=== PATIENT | female | born 1940 | race Caucasian/White ===

== ENCOUNTER 2021-04-25 14:21 | Emergency (ER) | payer MEDICARE, OTHER ==
[~2021-04-25] VITALS: Ht 152.4 cm; Wt 75.3 kg
--- NOTE | 2021-04-25 14:21 | NUR ---
PT BIBRA 60 FROM HOME C/O WEAKNESS AND DIZZINESS. 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 WILL CONTINUE TO MONITOR.
--- NOTE | 2021-04-25 14:40 | NUR ---
AT BEDSIDE FOR EVAL.
[2021-04-25] MEDS ORDERED: SITA100T PO (14:49)
[2021-04-25] MEDS ORDERED: LEVO75TA7 PO (14:49)
[2021-04-25] MEDS ORDERED: ASPI-1420 PO (14:49)
[2021-04-25] MEDS ORDERED: APIX5TAB PO (14:49)
[2021-04-25] MEDS ORDERED: AMLO-212 PO (14:49)
[2021-04-25] MEDS ORDERED: BISO10TA PO (14:49)
[2021-04-25] MEDS ORDERED: ATOR40TA PO (14:49)
[2021-04-25] MEDS ORDERED: ICOS1CAP PO (14:49)
[2021-04-25] MEDS ORDERED: DOCU250C21 PO (14:49)
[2021-04-25] MEDS ORDERED: HYDR-4076 PO (14:49)
[2021-04-25] MEDS ORDERED: DONE5TAB34 PO (14:49)
[2021-04-25] MEDS ORDERED: CHLO25TA2 PO (14:49)
[2021-04-25] MEDS ORDERED: GABA300C PO (14:49)
[2021-04-25] MEDS ORDERED: MECLIZINE HCL 25 MG TABLET ONE (14:52)
[2021-04-25] MEDS ORDERED: IV NS 0.9% 500 ML BAG IV ONE (15:00)
[2021-04-25] MEDS ORDERED: MECLIZINE HCL 12.5 MG TABLET PO ONE (15:00)
[2021-04-25 15:04] LABS: BASOPHILS % (AUTO) 0.8 % (0.0-2.0); EOSINOPHILS % (AUTO) 0.7 % (0.0-6.0); HEMATOCRIT 42 % (33-45); LYMPHOCYTES % (AUTO) 33.2 % (20.0-44.0); MEAN CORPUSCULAR HGB CONC 33 g/dl (31.0-36.0); MEAN CORPUSCULAR VOLUME 95 fL (82-100); MONOCYTES # (AUTO) 0.4 K/uL (0.1-1.30); MONOCYTES % (AUTO) 6.5 % (2.0-12.0); NEUTROPHILS # (AUTO) 3.6 K/uL (1.8-8.9); NEUTROPHILS % (AUTO) 58.8 % (43.0-81.0); PLATELET COUNT (AUTO) 171 K/uL (150-450); RED BLOOD CELL COUNT(AUTO) 4.39 MIL/uL (4.0-5.2); WHITE BLOOD COUNT (AUTO) 6.1 K/uL (4.3-11.0)
[2021-04-25 15:21] LABS: ALANINE AMINOTRANSFERASE 21 U/L (12-78); ALBUMIN 3.7 g/dL (3.4-5.0); ALKALINE PHOSPHATASE 86 U/L (46-116); ASPARTATE AMINOTRANSFERASE 17 U/L (15-37); BILIRUBIN,DIRECT 0.1 mg/dL (0.0-0.2); BILIRUBIN,TOTAL 0.7 mg/dL (0.2-1.0); CALCIUM, SERUM 8.7 mg/dL (8.5-10.1); CARBON DIOXIDE 28 mmol/L (21-32); CHLORIDE 105 mmol/L (98-107); CREATININE 1.2 mg/dL (0.6-1.3); GLUCOSE 151 mg/dL (74-106); POTASSIUM 4.7 mmol/L (3.5-5.1); SODIUM SERUM 140 mmol/L (136-145); TOTAL PROTEIN, SERUM 6.6 g/dL (6.4-8.2); UREA NITROGEN, BLOOD 17 mg/dL (7-18)
--- NOTE | 2021-04-25 15:22 | NUR ---
PT IS WHEELED TO CT SCAN VIA [facility].
[2021-04-25] MEDS ORDERED: MECL-159 PO (16:21)
--- NOTE | 2021-04-25 16:38 | NUR ---
IV removed. Catheter intact and site benign. Pressure and 4x4 applied to site. No bleeding noted. Patient discharged to home in stable condition. Written and verbal after care instructions given. Patient verbalizes understanding of instruction.
[2021-04-25 16:39] VITALS: BP 121/55
== END 2021-04-25 16:39 | disposition home or self-care (01) ==
LOC: EDSEX 14:26 → ER 14:26
DX: R42 Dizziness and giddiness (principal); I10 Essential (primary) hypertension; Z79.899 Other long term (current) drug therapy
CPT/HCPCS: 36415; 70450; 71045; 80048; 80076; 84484; 85025; 93005; 99285; J7040; J8597